=== PATIENT | female | born 1960 | race Caucasian/White ===

== ENCOUNTER 2016-11-02 14:08 | Emergency (ER) | payer BC, OTHER ==
[2016-11-02 14:15] VITALS: BP 155/94
[2016-11-02] MEDS ORDERED: TETANUS/DIPHTHERIA/PERTUSSIS 0.5 ML SYRINGE IM ONE ×2 (14:27→14:29)
--- NOTE | 2016-11-02 14:29 | ED Physician Documentation ---
PD HPI LOWER EXT INJURY - Stated complaint Stated Complaint: NAIL ON LEFT FOOT - Chief complaint Chief Complaint: Laceration - History obtained from History obtained from: Patient - History of Present Illness PD HPI LOW EXT INJURY LOCATION: Left, Foot Type of injury: Puncture wound (stepped on a nail at home in garage just [employer], tetanus >5 yrs. Mild pain, more pain in arm from known pinched nerve.) Review of Systems Constitutional: denies: Fever, Chills Musculoskeletal: denies: Neck pain, Back pain Psychiatric: reports: Reviewed and negative PD PAST MEDICAL HISTORY - Past Medical History Endocrine/Autoimmune: HyPOthyroidism - Present Medications Home Medications: Ambulatory Orders Medication Instructions Recorded Confirmed HYDROcod/ACETAM 5/325 [Henderson 5/325] 1 - 2 ea PO Q6H PRN #15 tablet 11/02/16 Levothyroxine Sodium [Synthroid] 0 mcg PO DAILY 11/02/16 11/02/16 - Allergies Allergies/Adverse Reactions: Allergies Allergy/AdvReac Type Severity Reaction Status Date / Time No Known Drug Allergies Allergy Verified 11/02/16 14:15 - Social History Does the pt smoke?: No Smoking Status: Never smoker Does the pt drink ETOH?: Yes Does the pt have substance abuse?: No - POLST Patient has POLST: No PD ED PE NORMAL - Vitals Vital signs reviewed: Yes - General General: Alert and oriented X 3, No acute distress - Extremities Extremities: Other (On the plantar surface of the left foot, sort of between the first and second metatarsal head there is a clearly visible puncture wound without bony tenderness or limited range of motion. It was irrigated and dressed during exam.) - Neuro Neuro: Alert and oriented X 3, Normal speech - Psych Psych: Normal mood, Normal affect Results - Vitals Vitals: Vital Signs - 24 hr 11/02/16 14:12 Temperature 37.0 C Heart Rate 84 Respiratory 16 Rate Blood Pressure 155/94 H O2 Saturation 99 Oxygen O2 Source Room air PD MEDICAL DECISION MAKING - ED course ED course: She was given signs and symptoms to watch out for regarding infection, tetanus was updated. Departure - Departure Disposition: 01 Home, Self Care Clinical Impression: Puncture wound Condition: Good Record reviewed to determine appropriate education?: Yes Instructions: ED Wound Puncture General Prescriptions: HYDROcod/ACETAM 5/325 [Henderson 5/325] 1 - 2 ea PO Q6H PRN #15 tablet PRN Reason: Pain Comments: Wash the wound briefly but in general keep it dry and covered. Come back for any signs of infection which would include: Redness, swelling, drainage, increased pain, or fevers. Your blood pressure was elevated today on check in to the emergency department. This does not mean that you have hypertension, it is a common phenomenon to check into the emergency department and have elevated blood pressure. I recommend that you see your primary care physician within the week to have it rechecked when you're feeling better.
== END 2016-11-02 14:36 | disposition home or self-care (01) ==
LOC: ED 14:08
DX: S91.332A Puncture wound without foreign body, left foot, initial encounter (principal); W45.0XXA Nail entering through skin, initial encounter; Y92.015 Private garage of single-family (private) house as the place of occurrence of the external cause; Z23 Encounter for immunization; R03.0 Elevated blood-pressure reading, without diagnosis of hypertension; E03.9 Hypothyroidism, unspecified
CPT/HCPCS: 90471; 99283

== ENCOUNTER 2017-01-30 16:40 | Outpatient (CLI) | payer OTHER ==
--- NOTE | 2017-01-31 10:03 | XRAY Report ---
COMPLETE CERVICAL SPINE: 01/30/2017 CLINICAL INDICATION: Cervical disc disease. FINDINGS: AP, lateral, oblique, odontoid views of the cervical spine demonstrate mild degenerative d isc and facet disease. Minimal osseous neural foraminal narrowing is seen at C4-5 and C5-6 bilateral ly. The prevertebral soft tissues are unremarkable. There is no evidence of fracture. IMPRESSION: MILD DEGENERATIVE DISC AND FACET DISEASE. JOB #: [id number] EXT JOB #:[id number]
== END 2017-01-30 16:41 | disposition home or self-care (01) ==
LOC: DI 16:40
PROVIDERS: ATTEND Physician Assistant Medical
DX: M50.121 Cervical disc disorder at C4-C5 level with radiculopathy (principal); M47.22 Other spondylosis with radiculopathy, cervical region
CPT/HCPCS: 72050

== ENCOUNTER 2017-10-09 07:29 | Outpatient (CLI) | payer OTHER ==
[2017-10-09 08:04] LABS: BASOPHILS # (AUTO) 0.1 10^3/uL (0.0-0.1); BASOPHILS % (AUTO) 1.1 %; EOSINOPHILS # (AUTO) 0.3 10^3/uL (0.0-0.7); EOSINOPHILS % (AUTO) 4.6 %; HGB - HEMOGLOBIN 14.5 g/dL (12.0-16.0); LYMPHOCYTES % (AUTO) 30.6 %; MEAN CORPUSCULAR HEMOGLOBIN 28.7 pg (27.0-31.0); MEAN CORPUSCULAR HGB CONC 33.5 g/dL (32.0-36.0); MEAN CORPUSCULAR VOLUME 85.7 fL (81.0-99.0); MEAN PLATELET VOLUME 8.9 fL (7.9-10.8); MONOCYTES # (AUTO) 0.6 10^3/uL (0.0-1.0); MONOCYTES % (AUTO) 8.7 %; NEUTROPHILS # (AUTO) 3.6 10^3/uL (1.5-6.6); PLT - PLATELET COUNT 231 10^3/uL (130-450); RED BLOOD COUNT 5.04 10^6/uL (4.20-5.40); RED CELL DISTRIBUTION WIDTH 13.9 % (12.0-15.0); WHITE BLOOD COUNT 6.5 x10^3/uL (4.8-10.8)
[2017-10-09 08:16] LABS: ALBUMIN 4.5 g/dL (3.2-5.5); ALBUMIN/GLOBULIN RATIO 1.9 (1.0-2.2); BILIRUBIN,TOTAL 0.9 mg/dL (0.2-1.0); CALCIUM 9.2 mg/dL (8.5-10.3); CREATININE 1.1 mg/dL (0.4-1.0); TOTAL PROTEIN 6.9 g/dL (6.7-8.2)
[2017-10-10 09:02] LABS: HEPATITIS C ANTIBODY NON-REACTIVE (NON-REACTIVE)
== END 2017-10-09 07:30 | disposition home or self-care (01) ==
LOC: LAB 07:29
PROVIDERS: ATTEND Physician Assistant Medical
DX: Z00.00 Encounter for general adult medical examination without abnormal findings (principal); Z11.59 Encounter for screening for other viral diseases; E03.9 Hypothyroidism, unspecified; Z79.899 Other long term (current) drug therapy
CPT/HCPCS: 36415; 80053; 84443; 85025; 86803

== ENCOUNTER 2017-10-23 13:45 | Outpatient (CLI) | payer OTHER ==
[2017-10-23 16:11] LABS: BILIRUBIN,URINE NEGATIVE (NEGATIVE); GLUCOSE, URINE (UA) NEGATIVE (NEGATIVE); KETONES,URINE (UA) NEGATIVE (NEGATIVE); LEUKOCYTE ESTERASE, URINE TRACE (NEGATIVE); NITRITE,URINE NEGATIVE (NEGATIVE); OCCULT BLOOD,URINE NEGATIVE (NEGATIVE); PROTEIN,URINE NEGATIVE (NEGATIVE); UROBILINOGEN,URINE 0.2 (NORMAL) E.U./dL (NORMAL)
[2017-10-23 16:22] LABS: BACTERIA,URINE Few /HPF (None Seen); CLARITY,URINE CLEAR (CLEAR); RBC,URINE 0-5 /HPF (0-5); SQUAMOUS EPITHELIAL CELL,UR FEW Squamous (<= Few)
== END 2017-10-23 13:46 ==
LOC: LAB.R 13:45
PROVIDERS: ATTEND Physician Assistant Medical
DX: N18.3 Chronic kidney disease, stage 3 (moderate) (principal)
CPT/HCPCS: 81001; 82043; 87086

== ENCOUNTER 2017-10-23 13:50 | Outpatient (CLI) | payer OTHER ==
--- NOTE | 2017-10-23 17:27 | XRAY Report ---
THREE VIEW LEFT KNEE: 10/23/2017 CLINICAL INDICATION: Pain. FINDINGS: AP, lateral, sunrise views of the left knee demonstrate no evidence of fracture or dislocation. No effusion is present. The joint spaces are preserved. IMPRESSION: NORMAL LEFT KNEE. TD: 10/23/2017 15:47
== END 2017-10-23 13:51 | disposition home or self-care (01) ==
LOC: DI 13:50
PROVIDERS: ATTEND Physician Assistant Medical
DX: M25.562 Pain in left knee (principal)

== ENCOUNTER 2018-03-19 11:31 | Outpatient (CLI) | payer OTHER ==
[2018-03-19 12:12] LABS: ALBUMIN 4.8 g/dL (3.2-5.5); ALBUMIN/GLOBULIN RATIO 1.6 (1.0-2.2); BILIRUBIN,TOTAL 0.6 mg/dL (0.2-1.0); CALCIUM 9.7 mg/dL (8.5-10.3); CREATININE 0.9 mg/dL (0.4-1.0); TOTAL PROTEIN 7.8 g/dL (6.7-8.2)
== END 2018-03-19 11:32 | disposition home or self-care (01) ==
LOC: LAB 11:31
PROVIDERS: ATTEND Physician Assistant Medical
DX: N18.3 Chronic kidney disease, stage 3 (moderate) (principal); E03.9 Hypothyroidism, unspecified; Z79.899 Other long term (current) drug therapy
CPT/HCPCS: 36415; 80053; 84443

== ENCOUNTER 2019-01-26 08:00 | Outpatient (CLI) | payer OTHER ==
[2019-01-26 18:53] LABS: BASOPHILS # (AUTO) 0.1 10^3/uL (0.0-0.1); EOSINOPHILS # (AUTO) 0.3 10^3/uL (0.0-0.7); EOSINOPHILS % (AUTO) 3.9 %; HGB - HEMOGLOBIN 14.7 g/dL (12.0-16.0); LYMPHOCYTES # (AUTO) 1.9 10^3/uL (1.5-3.5); MEAN CORPUSCULAR HEMOGLOBIN 28.9 pg (27.0-31.0); MEAN CORPUSCULAR HGB CONC 31.7 g/dL (32.0-36.0); MEAN PLATELET VOLUME 11.2 fL (7.9-10.8); MONOCYTES # (AUTO) 0.6 10^3/uL (0.0-1.0); NEUTROPHILS # (AUTO) 3.8 10^3/uL (1.5-6.6); PLT - PLATELET COUNT 288 10^3/uL (130-450); RED BLOOD COUNT 5.09 10^6/uL (4.20-5.40); RED CELL DISTRIBUTION WIDTH 13.1 % (12.0-15.0); WHITE BLOOD COUNT 6.7 x10^3/uL (4.8-10.8)
[2019-01-26 19:04] LABS: ALBUMIN 4.6 g/dL (3.2-5.5); ALBUMIN/GLOBULIN RATIO 1.6 (1.0-2.2); BILIRUBIN,TOTAL 0.8 mg/dL (0.2-1.0); CALCIUM 9.2 mg/dL (8.5-10.3); TOTAL PROTEIN 7.5 g/dL (6.7-8.2)
== END 2019-01-26 23:59 | disposition home or self-care (01) ==
LOC: LAB.WCP 08:00
PROVIDERS: ATTEND Family Medicine
DX: N18.2 Chronic kidney disease, stage 2 (mild) (principal); R10.9 Unspecified abdominal pain
CPT/HCPCS: 36415; 80053; 84443; 85025

== ENCOUNTER 2019-05-09 09:21 | Outpatient (CLI) | payer BC, OTHER ==
--- NOTE | 2019-05-10 00:47 | Ultrasound Report ---
Reason: CKD STAGE 2 Procedure Date: 05/09/2019 Accession Number: [id number] / [id number] Procedure: US - Retroperitoneal CPT Code: Final Report FULL RESULT: EXAM: RENAL ULTRASOUND EXAM DATE: 05/09/2019 10:01 AM. CLINICAL HISTORY: CKD STAGE 2. COMPARISON: None. TECHNIQUE: Real-time scanning was performed with static images obtained. FINDINGS: Right Kidney: 11.0 x 3.8 x 5.0 cm. Normal echotexture with no stones, contour-deforming masses, or hydronephrosis. Left Kidney: 10.8 x 4.7 x 5.3 cm. Normal echotexture with no stones, contour-deforming masses, or hydronephrosis. Bladder: Bilateral jets seen. The prevoid bladder volume was 405 cc. The postvoid bladder volume was 3 cc. Other: Marked increased echogenicity of the liver suggesting fatty infiltration. IMPRESSION: 1. Normal renal ultrasound. 2. Suspect fatty liver. RADIA
== END 2019-05-09 09:22 | disposition home or self-care (01) ==
LOC: DI 09:21
PROVIDERS: ATTEND Physician Assistant
DX: N18.2 Chronic kidney disease, stage 2 (mild) (principal)
CPT/HCPCS: 76770

== ENCOUNTER 2020-06-19 12:04 | Outpatient (CLI) | payer BC ==
[2020-06-19 12:37] LABS: BASOPHILS % (AUTO) 0.6 %; EOSINOPHILS # (AUTO) 0.2 10^3/uL (0.0-0.7); EOSINOPHILS % (AUTO) 3.3 %; HGB - HEMOGLOBIN 15.4 g/dL (12.0-16.0); LYMPHOCYTES % (AUTO) 29.8 %; MEAN CORPUSCULAR HEMOGLOBIN 29.2 pg (27.0-31.0); MEAN CORPUSCULAR HGB CONC 32.6 g/dL (32.0-36.0); MEAN CORPUSCULAR VOLUME 89.4 fL (81.0-99.0); MEAN PLATELET VOLUME 10.5 fL (7.9-10.8); MONOCYTES # (AUTO) 0.5 10^3/uL (0.0-1.0); MONOCYTES % (AUTO) 7.6 %; NEUTROPHILS # (AUTO) 3.9 10^3/uL (1.5-6.6); NEUTROPHILS % (AUTO) 58.5 %; PLT - PLATELET COUNT 264 10^3/uL (130-450); RED BLOOD COUNT 5.28 10^6/uL (4.20-5.40); RED CELL DISTRIBUTION WIDTH 12.5 % (12.0-15.0); WHITE BLOOD COUNT 6.6 x10^3/uL (4.8-10.8)
[2020-06-19 12:55] LABS: ALBUMIN/GLOBULIN RATIO 1.8 (1.0-2.2); ALKALINE PHOSPHATASE 40 IU/L (42-121); ALT ALANINE AMINOTRANSFERASE 29 IU/L (10-60); AST ASPARTATE AMINOTRANSFERASE 24 IU/L (10-42); BILIRUBIN,TOTAL 0.7 mg/dL (0.2-1.0); BUN - BLOOD UREA NITROGEN 23 mg/dL (6-20); CALCIUM 9.6 mg/dL (8.5-10.3); CARBON DIOXIDE - CO2 26 mmol/L (21-32); CHLORIDE 101 mmol/L (101-111); CHOL/HDL RATIO 5.3 (<4.4); CHOLESTEROL 301 mg/dL; GLUCOSE 100 mg/dL (70-100); HDL CHOLESTEROL 57 mg/dL; LDL CHOLESTEROL,CALCULATED 224 mg/dL; LDL/HDL RATIO 3.9 (<4.4); TOTAL PROTEIN 7.8 g/dL (6.7-8.2); VLDL CHOLESTEROL 20 mg/dL
== END 2020-06-19 12:05 | disposition home or self-care (01) ==
LOC: LAB 12:04
PROVIDERS: ATTEND Nurse Practitioner
DX: I10 Essential (primary) hypertension (principal); E78.5 Hyperlipidemia, unspecified; E03.9 Hypothyroidism, unspecified
CPT/HCPCS: 36415; 80053; 80061; 83721; 84439; 84443; 85025

== ENCOUNTER 2020-12-28 07:10 | Outpatient (CLI) | payer BC ==
[2020-12-28 12:45] LABS: THYROID STIMULATING HORMONE 10.56 uIU/mL (0.34-5.60)
[2020-12-28 13:43] LABS: CHOL/HDL RATIO 5.5 (<4.4); CHOLESTEROL 347 mg/dL; HDL CHOLESTEROL 63 mg/dL; LDL CHOLESTEROL,CALCULATED 260 mg/dL; LDL/HDL RATIO 4.1 (<4.4); TRIGLYCERIDES 121 mg/dL; VLDL CHOLESTEROL 24 mg/dL
[2020-12-28 15:08] LABS: FREE T4 (FREE THYROXINE) 1.07 ng/dL (0.58-1.64)
== END 2020-12-28 23:59 | disposition home or self-care (01) ==
LOC: LAB.WCP 07:10
PROVIDERS: ATTEND Physician Assistant Medical
DX: E78.5 Hyperlipidemia, unspecified (principal); G62.9 Polyneuropathy, unspecified; E03.9 Hypothyroidism, unspecified
CPT/HCPCS: 36415; 80061; 82607; 83721; 84439; 84443

== ENCOUNTER 2021-03-30 08:01 | Outpatient (CLI) | payer BC ==
[2021-03-30 14:23] LABS: ALBUMIN 4.5 g/dL (3.2-5.5); ALBUMIN/GLOBULIN RATIO 1.7 (1.0-2.2); ALKALINE PHOSPHATASE 40 IU/L (42-121); ALT ALANINE AMINOTRANSFERASE 31 IU/L (10-60); AST ASPARTATE AMINOTRANSFERASE 26 IU/L (10-42); BILIRUBIN,TOTAL 0.5 mg/dL (0.2-1.0); BUN - BLOOD UREA NITROGEN 24 mg/dL (6-20); CALCIUM 9.5 mg/dL (8.5-10.3); CARBON DIOXIDE - CO2 26 mmol/L (21-32); CHLORIDE 107 mmol/L (101-111); CHOL/HDL RATIO 3.5 (<4.4); CHOLESTEROL 196 mg/dL; GFR - MDRD 57 (>89); GLUCOSE 90 mg/dL (70-100); HDL CHOLESTEROL 56 mg/dL; LDL CHOLESTEROL,CALCULATED 117 mg/dL; LDL/HDL RATIO 2.1 (<4.4); POTASSIUM 4.2 mmol/L (3.5-5.0); SODIUM 143 mmol/L (135-145); TOTAL PROTEIN 7.2 g/dL (6.7-8.2); TRIGLYCERIDES 117 mg/dL; VLDL CHOLESTEROL 23 mg/dL
[2021-03-30 14:32] LABS: THYROID STIMULATING HORMONE 0.97 uIU/mL (0.34-5.60)
== END 2021-03-30 23:59 | disposition home or self-care (01) ==
LOC: LAB.WCP 08:01
PROVIDERS: ATTEND Physician Assistant Medical
DX: E03.9 Hypothyroidism, unspecified (principal); E78.5 Hyperlipidemia, unspecified
CPT/HCPCS: 36415; 80053; 80061; 83721; 84443

== ENCOUNTER 2021-05-29 12:27 | Outpatient (CLI) | payer BC ==
--- NOTE | 2021-05-29 13:18 | CARDIAC PROCEDURE NOTE ---
Stress Test Report Service Date: 05/29/21 Service Time: 12:30 Ordering Provider: Eugenia Polo PA-C Indication for Test: Assess for cardiac ischemia as a contributor to periodic chest discomort. Significant Medical History: -Mora is referred for evaluation of atypical chest discomfort that has been present intermittently since the summer 2019. When seen in early March,, she reported to her provider that symptoms were increasing in frequency, occurring approximately 5 days/week, usually associated with psychosocial stress and lasting for several hours. 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 She experiences a heaviness in the central and right upper chest area that is not painful and is not associated with diaphoresis and shortness of breath. She walks regularly while doing her work, but has not been in the habit of exercising regularly, though she feels that her stamina is intact. She has never had the chest discomfort with physical activity. -She reports some variable blood pressures, with recent readings on home monitoring as high as 85-90 diastolic, though has not been treated for hypertension in the past. She reports a total cholesterol level of approximately 325 prior to relatively recent initiation of rosuvastatin at 5 mg daily, with decrease in total cholesterol to about 175 and HDL cholesterol of 58. Cardiac Risk Factors: Positive for family history of CAD in her father ([place] in his 60's), longstanding significant hyperlipidemia (only recently effectively treated with rosuvastatin and borderline hypertension (not currently treated); no history of tobacco smoking or diabetes. Type of Stress Test: ETT with Myocardial Perfusion Imaging Procedure: -Exercise Treadmill Test- After signing informed consent, the patient underwent resting [id number] SPECT imaging and then performed treadmill exercise using a [place] protocol. The patient exercised for 7 minutes 50 seconds and achieved a peak heart rate of 162 (100 percent predicted maximum heart rate for age), and an estimated workload of 10.2 METS. The test was terminated due to fatigue/shortness of breath with ST depression at a diagnostic level of exercise. Resting heart rate: 78 Peak heart rate: 160 Normal response to exercise. Resting BP: 135/94 Peak BP: 190/100 (at 2:49 of exercise, next readings 181/96 at 5:49 of exercise and 167/92 in early recovery) Hypertensive at rest, with abnormal exertional BP response (increase then decrease). Rhythm during exercise: Sinus rhythm throughout. Symptoms: She denied experiencing ANY chest discomfort whatsoever. EKG at rest showed normal sinus rhythm, normal in all aspects. EKG at peak stress showed horizontal ST depression >1.0 mm in leads II and V5, meeting diagnostic criteria for ischemia, with quantitatively lesser ST depression in leads V3, V4 and V6. In Recovery blood pressure increased after slight decrease at peak stress then decreased, but remained elevated (168/96) at 6 minutes; heart rate returned towards normal. Nuclear imaging performed at rest and with stress and interpretataion is reported separately. IRamone MD, was present throughout this treadmill stress study and supervised it in its entirety. Summary: 1) Exercise tolerance slightly above average for age, as evidenced by DEMETRA of - 13% 2) Normal resting EKG. 3) Adequate level of exercise was achieved on this treadmill stress test. 4) Abnormal BP response to exercise. 5) Ischemic changes by EKG criteria were seen at peak stress. 6) Analysis of gated nuclear images reveals normal left ventricular size and hyperdynamic systolic function, with calculated EF 89%; SPECT analysis reveals no clear evidence of prior infarct or inducible ischemia, though supine stress phase images suggested anterior defect, NOT seen with prone imaging. See separate report for more detail. CONCLUSIONS: 1) Elevated resting BP with variant response to exercise. 2) Abnormal ST depression, most likely false positive EKG response given interpretation of SPECT images.
--- NOTE | 2021-05-30 10:47 | Nuclear Medicine Report ---
PROCEDURE: Rest and exercise myocardial perfusion SPECT with gated imaging and ejection fraction INDICATIONS: CHEST PAIN RADIOPHARMACEUTICAL: 14.5 mCi Tc-99m Myoview IV at rest and 37.2 mCi Tc-99m Myoview IV at peak exerc ise. [id number] was performed. TECHNIQUE: Radiopharmaceutical was injected at peak stress test, and also at rest. SPECT images wer e obtained. SPECT myocardial perfusion images were displayed in short axis, horizontal long axis, an d vertical long axis views. Gated images were reviewed using AutoQUANT software. COMPARISON: None available. FINDINGS: Raw data: There is good myocardial labeling by radiotracer. No significant motion artifacts. Lung- to-heart ratio is (normal is less than 0.46 for tetrafosmin tracer). No definitive EKG changes o f ischemia are identified. Left ventricle function: Gated images demonstrate normal left ventricle wall thickening. No segment al wall motion abnormality. No transient ischemic dilation; TID is 0.81 (normal less than 1.30). Th e left ventricle resting end-diastolic volume is 56 mL. Left ventricle stress ejection fraction is 8 9%; normal values are above 45%. Patient achieved 100% of maximum predicted heart rate. DEMETRA -13.3%. Myocardial perfusion: There is slight appearance of anterior wall stress perfusion defect which reso lves with prone imaging and suspected be soft tissue artifact. No fixed or reversible perfusion defec ts. IMPRESSION: 1. Slight appearance of anterior stress wall perfusion defect resolves with prone imaging suspected t o be soft tissue artifact. No stress perfusion defects are identified suspicious for ischemia. 2. DEMETRA -13.3%. 3. No definitive EKG changes of ischemia. PQRS ATTESTATIONS: Measure 322 - Is this imaging test primarily performed on a low-risk surgery for preoperative evaluat ion within 30 days preceding their low-risk non-cardiac surgery? Low-risk surgery is defined as card iac or myocardial infarction less than 1%, including (but not limited to) endoscopic procedures , superficial procedures, cataract surgery, and excisional breast surgery: Answer: No Measure 323 - Is this imaging test performed primarily for the monitoring of an asymptomatic patient who had percutaneous coronary intervention on the visit date or within 2 years of the visit date? An swer: No Measure 324 - Is this imaging test performed primarily for the initial detection and risk assessment on an asymptomatic, low coronary heart disease patient? Low CHD risk definition = clinicians should consider the maximum number of available patient factors used to estimate risk based on [place] (A TP III criteria), typically age, gender, diabetes, smoking status, and use of blood pressure medicati on, and integrate age appropriate estimates for missing elements, such as LDL or standard blood press ure. Answer: No Reviewed by: Eileen Morales MD on 05/30/2021 10:46 AM PST Approved by: Eileen Morales MD on 05/30/2021 10:46 AM PST Station ID: [id number]
== END 2021-05-29 12:28 | disposition home or self-care (01) ==
LOC: DI 12:27
PROVIDERS: ATTEND Physician Assistant Medical
DX: R07.9 Chest pain, unspecified (principal); I10 Essential (primary) hypertension; E78.5 Hyperlipidemia, unspecified; Z82.49 Family history of ischemic heart disease and other diseases of the circulatory system
CPT/HCPCS: 78452; 93016; 93017; 93018; A9500

== ENCOUNTER 2022-04-10 08:22 | Outpatient (CLI) | payer BC ==
--- NOTE | 2022-04-10 12:04 | Mammography Report ---
BILATERAL DIGITAL SCREENING MAMMOGRAM 3D/2D: 04/10/2022 CLINICAL: Routine screening. Comparison is made to exams dated: 05/07/2016 mammogram, 04/04/2014 mammogram, and 12/07/2012 mammogr am - [facility]. Both breasts are almost entirely fatty (category a/<25% glandular tissue). No significant masses, calcifications, or other findings are seen in either breast. There has been no significant interval change. IMPRESSION: NEGATIVE There is no mammographic evidence of malignancy. A 1 year screening mammogram is recommended. Based on the Tyrer Cuzick model (a risk assessment model) the patients lifetime risk is 6.6% and her 10 year risk is 2.6%. According to the ACR, ACS, and NCCN guidelines, an annual breast MRI exam yessy g with mammogram is recommended if the patients lifetime risk is 20% or greater. This exam was interpreted at Station ID: [id number]. NOTE: For mammograms, a report in lay terms will be sent to the patient. Approximately 15% of breast malignancies will not be visualized mammographically. In the management of a palpable breast mass, a negative mammogram must not discourage biopsy of a clinically suspicious lesion. Electronically Signed By: Peter Moore M.D. [email or web address]:04/10/2022 09:41:27 ACR BI-RADS Category 1: Negative 3341F PARENCHYMAL PATTERN: (F) - The breast(s) demonstrate(s) diffuse fatty replacement. BI-RADS CATEGORY: (1) - 1 RECOMMENDATION: (ANNUAL) - Recommend routine annual screening mammography. [id number] 1 year screening LATERALITY: (B)
== END 2022-04-10 08:23 | disposition home or self-care (01) ==
LOC: DI.N 08:22
DX: Z12.31 Encounter for screening mammogram for malignant neoplasm of breast (principal)

== ENCOUNTER 2022-06-21 08:14 | Outpatient (CLI) | payer BC ==
[2022-06-21 12:27] LABS: BASOPHILS # (AUTO) 0.1 10^3/uL (0.0-0.1); BASOPHILS % (AUTO) 1.1 %; EOSINOPHILS # (AUTO) 0.3 10^3/uL (0.0-0.7); EOSINOPHILS % (AUTO) 4.3 %; HCT - HEMATOCRIT 47.4 % (37.0-47.0); HGB - HEMOGLOBIN 15.2 g/dL (12.0-16.0); LYMPHOCYTES # (AUTO) 2.3 10^3/uL (1.5-3.5); LYMPHOCYTES % (AUTO) 35.1 %; MEAN CORPUSCULAR HEMOGLOBIN 28.6 pg (27.0-31.0); MEAN CORPUSCULAR HGB CONC 32.1 g/dL (32.0-36.0); MEAN CORPUSCULAR VOLUME 89.3 fL (81.0-99.0); MEAN PLATELET VOLUME 11.1 fL (7.9-10.8); MONOCYTES # (AUTO) 0.6 10^3/uL (0.0-1.0); MONOCYTES % (AUTO) 9.7 %; NEUTROPHILS # (AUTO) 3.2 10^3/uL (1.5-6.6); NEUTROPHILS % (AUTO) 49.5 %; PLT - PLATELET COUNT 273 10^3/uL (130-450); RED BLOOD COUNT 5.31 10^6/uL (4.20-5.40); WHITE BLOOD COUNT 6.5 x10^3/uL (4.8-10.8)
[2022-06-21 12:44] LABS: ALBUMIN 4.5 g/dL (3.2-5.5); ALBUMIN/GLOBULIN RATIO 1.5 (1.0-2.2); ALKALINE PHOSPHATASE 42 IU/L (42-121); ALT ALANINE AMINOTRANSFERASE 29 IU/L (10-60); AST ASPARTATE AMINOTRANSFERASE 25 IU/L (10-42); BILIRUBIN,TOTAL 0.3 mg/dL (0.2-1.0); BUN - BLOOD UREA NITROGEN 17 mg/dL (6-20); CALCIUM 9.5 mg/dL (8.5-10.3); CARBON DIOXIDE - CO2 26 mmol/L (21-32); CHLORIDE 105 mmol/L (101-111); CHOL/HDL RATIO 3.5 (<4.4); CHOLESTEROL 219 mg/dL; CREATININE 1.2 mg/dL (0.4-1.0); GFR - MDRD 46 (>89); GLUCOSE 99 mg/dL (70-100); HDL CHOLESTEROL 63 mg/dL; LDL CHOLESTEROL,CALCULATED 136 mg/dL; LDL/HDL RATIO 2.2 (<4.4); POTASSIUM 4.1 mmol/L (3.5-5.0); SODIUM 140 mmol/L (135-145); TOTAL PROTEIN 7.5 g/dL (6.7-8.2); TRIGLYCERIDES 98 mg/dL; VLDL CHOLESTEROL 20 mg/dL
[2022-06-21 12:52] LABS: THYROID STIMULATING HORMONE 3.58 uIU/mL (0.34-5.60)
== END 2022-06-21 08:15 | disposition home or self-care (01) ==
LOC: LAB.N 08:14
PROVIDERS: ATTEND Physician Assistant Medical
DX: I10 Essential (primary) hypertension (principal); E78.5 Hyperlipidemia, unspecified; E03.9 Hypothyroidism, unspecified
CPT/HCPCS: 36415; 80053; 80061; 83721; 84443; 85025

== ENCOUNTER 2022-11-11 07:41 | Outpatient (CLI) | payer BC ==
[2022-11-11 12:39] LABS: THYROID STIMULATING HORMONE 0.18 uIU/mL (0.34-5.60)
[2022-11-11 13:12] LABS: FREE T4 (FREE THYROXINE) 1.55 ng/dL (0.58-1.64)
[2022-11-11 14:52] LABS: CHOL/HDL RATIO 3.1 (<4.4); CHOLESTEROL 213 mg/dL; HDL CHOLESTEROL 68 mg/dL; LDL CHOLESTEROL,CALCULATED 131 mg/dL; LDL/HDL RATIO 1.9 (<4.4); TRIGLYCERIDES 71 mg/dL; VLDL CHOLESTEROL 14 mg/dL
== END 2022-11-11 07:42 | disposition home or self-care (01) ==
LOC: LAB.N 07:41
PROVIDERS: ATTEND Physician Assistant Medical
DX: E03.9 Hypothyroidism, unspecified (principal); E78.5 Hyperlipidemia, unspecified
CPT/HCPCS: 36415; 80061; 83721; 84439; 84443